=== PATIENT | female | born 1985 | race Two or more races ===

== ENCOUNTER → 2024-05-02 | Outpatient (CLI) | payer OTHER, MEDICAID, SELFPAY ==
--- NOTE | 2024-05-02 10:30 | XR_ITS ---
Examination: Abdomen sonogram, complete Date and time of exam: May 02, 2024 1058 hours INDICATIONS: Morbid obesity history. Technique: Multiple real-time grayscale transabdominal sonographic images of the abdomen have been obtained. Findings: Normal gallbladder Normal common bile duct 0.2 cm Pancreatic head 1.9 cm Aorta not enlarged Liver 16.1 cm fatty infiltration smooth contour no focal liver lesions Normal hepatopedal portal venous flow Patent IVC Right kidney 13.2 x 4.7 x 6.6 cm cortex 1.7 cm Left kidney 12.6 x 5.4 x 5.6 cm in the cortex 1.8 cm Mild bilateral renal parenchymal scar formation Spleen 9.2 cm IMPRESSION: Negative for abdominal aortic aneurysm Mild bilateral renal parenchymal scar formation
== END | disposition home or self-care (01) ==
PROVIDERS: PCP Nurse Practitioner Family; Referring Provider Student in an Organized Health Care Education/Training Program; Visit Provider Student in an Organized Health Care Education/Training Program
DX: N28.89 Other specified disorders of kidney and ureter (principal); E66.01 Morbid (severe) obesity due to excess calories
CPT/HCPCS: 76700

== ENCOUNTER → 2024-05-20 | Outpatient (CLI) | payer OTHER, MEDICAID, SELFPAY ==
--- NOTE | 2024-05-20 09:30 | XR_ITS ---
Examination: Esophagram standard Fluoroscopy Upright PA chest single view Upright soft tissue lateral neck single view 19 spot fluoroscopic films of the esophagus Exam date and time: May 20, 2024 1053 hours INDICATIONS: Morbid obesity diagnosis preop TECHNIQUE AND FINDINGS: Upright PA chest single view demonstrates normal heart size, lungs are clear Soft tissue lateral neck normal epiglottis 19 spot fluoroscopic films of the esophagus obtained Primary peristaltic esophageal waves No esophageal reflux Small sliding esophageal hernia IMPRESSION: Negative for esophageal dysmotility Fluoroscopy 10 seconds, 19 spot fluoroscopic films of the esophagus
== END | disposition home or self-care (01) ==
LOC: CDIM 09:13
PROVIDERS: PCP Nurse Practitioner Family; Referring Provider Surgery; Visit Provider Surgery
DX: E66.01 Morbid (severe) obesity due to excess calories (principal); Z01.818 Encounter for other preprocedural examination
CPT/HCPCS: 74220